=== PATIENT | male | born 1995 ===

== ENCOUNTER 2017-04-26 21:56 | Emergency (ER) | payer SELFPAY ==
[~2017-04-26] VITALS: Wt 119.0 kg
[~2017-04-26 21:56] MED LIST: ALBU8.5H3 INH; CETI10CA PO; GUAI473L22 PO; IBUP400T22 PO
== END 2017-04-26 22:17 | disposition left against medical advice (07) ==
LOC: FTE 21:56 → E/R 22:17
DX: Z53.21 Procedure and treatment not carried out due to patient leaving prior to being seen by health care provider (principal)